=== PATIENT | male | born 1965 | race Caucasian/White ===

== ENCOUNTER 2017-04-03 14:19 | Emergency (ER) | payer MEDICARE ==
[~2017-04-03] VITALS: Ht 182.9 cm; Wt 90.9 kg
[2017-04-03 14:24] VITALS: BP 163/100; PULSE 74; RESP 15; O2SAT 97
--- NOTE | 2017-04-03 16:48 | ED.REPORT ---
HPI-Abd Pain M 40 and Over Date of Service April 03, 2017 ED Provider: Dr. Maldonado 52 y/o male with no pertinent hx reported presents to the ED complaining of abdominal pain, onset 3 days ago. Associated sx include vomiting and diarrhea for 2 days. The pt reports he had 12 episodes of diarrhea yesterday and 3 episodes today. He states he has not been able to keep his medications down. He took his pain medication yesterday morning last. He denies chills or tremors. Nursing Notes Stated Complaint: EXTREME PAIN Chief Complaint: Male Abdominal Pain Nursing Notes Reviewed: Yes Allergies: Coded Allergies: Sulfa (Sulfonamide Antibiotics) (Verified Allergy, Unknown, flushed, SOB, 04/03/17) morphine (Verified Allergy, Unknown, flushed, SOB, 04/03/17) Scheduled PRN Ondansetron ODT (Ondansetron ODT) 8 Mg Tab.rapdis 8 MG PO Q8H PRN PRN For Nausea /Vomiting General Time Seen by MD: 16:48 Chief Complaint Abdominal pain Hx Obtained From: Patient Arrived By: Walk-in Sudden in Onset?: Yes Onset Occurred: 3 days ago Symptom Duration: Since onset Location: : Diffuse Quality: Painful Radiation: : Does not radiate Severity: Current: Moderate Severity: Maximum: Moderate Recent Healthcare: Recent doctor visit Similar Sx Previous: No Past Medical History Past Medical History none reported Past Surgical History none reported Smoking History Unknown if Ever Smoker Social History Other Social History: Good social support Ambulatory Status Independent Review of Systems Constitutional: Denies: Chills GI: Reports: Abdominal pain, Diarrhea, Nausea, Vomiting Complete sys rev & neg: except as marked. Neurologic: Denies: Shaking Physical Exam Initial Vital Signs Vital Signs (First) Date Time Temp Pulse Resp B/P Pulse Ox O2 Delivery O2 Flow Rate FiO2 04/03/17 14:24 36.3 74 15 163/100 97 04/03/17 17:23 Room Air Initial VS: Reviewed, Vital signs abnormal Head / Eyes: Atraumatic, Normocephalic, PERRL Neck: Supple, Full range of motion Extremities: Vascular intact, Neuro intact, No swelling, No tenderness Skin: Warm, Dry, No cyanosis Neurologic: Alert, Oriented, Nonfocal General/Constitutional: Awake, Alert, Cooperative Respiratory / Chest: Atraumatic, Breath sounds NL, Breath sounds = bilat, No respiratory distress, No rales, No rhonchi, No wheezing Cardiovascular: Heart rate NL, Regular rhythm, Heart sounds NL, No gallop, No murmurs Abdomen: Atraumatic, Non-tender, No rebound Increased bowel sounds with general discomfort and voluntary guarding. Back: Atraumatic, Full range of motion ENT: Atraumatic Mouth: Positive: Mucous membranes dry Interpretation & Diagnostics Lab Results Interpretation CBC: WBC 9.0 RBC 4.85 HgB 15.6 Hct 46.1 MCV 95 MCH 32.2 MCHC 33.[address] 254 Diff LCA (th/mm3) polys-auto 5.42 lymphs 2.80 monos 0.54 eosinophils 0.22 basophils 0.04 polys& 60% lymphs 31% monos 6% eosinophils 2% basophils 0% Sodium 138 Potassium 4.4 Chloride 103 Total CO2 = 22 BUN 8 Creatinine 0.77 Calcium 9.8 Protein, total 8.3 Albumin 4.8 Bilirubin 0.3 Glucose 102 ALT 20 AST 222 Alk Ptase 73 Amylase, Tot 36 Lipase 22 Est Glom Filt Rate eGFR 103.[address] Abd / Pelvis Interpretation IMPRESSION: 1. Distal sigmoid resection changes with an appearance of thickening as described above. The thickening could be secondary to early infection or inflammation. However, there is no associated inflammatory change and it is incompletely distended. No free fluid or free air is identified. Dictated by: Diana Malik M.D. on 04/03/2017 at 14:39 Approved by: Diana Malik M.D. on 04/03/2017 at 14:42 Study type: Abdominal CT IV contrast Interpretation / Wet Read by: Interpret - Radiologist Re-Eval/Medical Decision Med Decision/Clinical Course The patient came over here after being in urgent care because he wanted some pain medication. They did a full workup there which does not show any cause of his symptoms. He did have some abnormal thickening of the sigmoid colon that does not explain his symptoms and he was told he needs to have that evaluated further. His symptoms are most consistent with gastroenteritis with some opiate withdraw superimposed. The patient was given antinausea medication, pain medication, and IV fluids. He requested something for her stomach and was given a GI cocktail. He did not have any episodes of emesis while in the emergency department and he requested to leave prior to finishing his IV fluids. Source of Hx: Old records Time of Eval: 18:04 Patient Status: Condition improved Re-Evaluation/Progress Note: Rechecked pt. He reports mild relief. Discussed lab, imaging results and diagnosis. Informed the pt of the plan to discharge. Pt understands and agrees with plan. F/U instructions and RTER warning given. All questions addressed. Counseled Regarding: Diagnosis, Lab results, Need for follow-up, When/why to return to ED Discharge & Departure Primary Impression: Gastroenteritis Disposition: Home Vital Signs - All Vital Signs Date Time Temp Pulse Resp B/P Pulse Ox O2 Delivery O2 Flow Rate FiO2 04/03/17 17:23 79 18 147/85 99 Room Air 04/03/17 14:24 36.3 74 15 163/100 97 )( All Prior VS Reviewed: Yes Patient Instructions: Gastroenteritis (ED) Additional Instructions: Thank you for trusting us with your care. Your lab work was reassuring. You did have some thickening of your distal colon on the CT scan and should have a sigmoidoscopy. Make sure you see your doctor for follow-up. The changes do not explain your symptoms today. Drink plenty of fluids, eat a bland diet of toast, rice, applesauce, and bananas. Stay way from dairy products for at least a week after symptoms are completely resolved. Seek care for increasing pain, fever, or for any new or concerning symptoms. Referrals: [facility] Scribe Attestation Portions of this note were transcribed by John Mckeon. I, , personally performed the history, physical exam and medical decision-making;I reviewed and confirmed the accuracy of the information in the transcribed note. Signed by Armond Yanez. 04/03/17 [id number] copies to: [facility] Diamante Maldonado MD April 03, 2017 16:48 John Mckeon April 03, 2017 17:13
[2017-04-03] MEDS ORDERED: Ondansetron 2 mg/mL 2 mL Inj IVPUSH PRN (16:50)
[2017-04-03] MEDS ORDERED: 0.9% Sodium Chloride 1,000 ML IV ONE (16:50)
[2017-04-03] MEDS ORDERED: HYDROmorphone 1 mg/mL Inj IVPUSH ONE ×2 (16:50→18:10)
[2017-04-03 17:23] VITALS: BP 147/85; PULSE 79; RESP 18; O2SAT 99
[2017-04-03] MEDS ORDERED: LidocaineVisc 2%:Antacid 1:1 10 mL Syringe PO ONE (18:15)
[2017-04-03] MEDS ORDERED: ONDA8TAB10 PO (18:35)
[2017-04-03 19:01] VITALS: PULSE 62; RESP 20; O2SAT 99
== END 2017-04-03 19:01 | disposition home or self-care (01) ==
LOC: SED 14:19
DX: K52.9 Noninfective gastroenteritis and colitis, unspecified (principal); Z88.2 Allergy status to sulfonamides; Z88.5 Allergy status to narcotic agent
CPT/HCPCS: 96361; 96374; 96375; 96376; 99284; J1170; J2405; J7030